=== PATIENT | male | born 1965 | race Caucasian/White ===

== ENCOUNTER 2025-05-08 09:42 | Outpatient (REF) | payer BC, SELFPAY ==
--- OUTSIDE RECORDS SUMMARY | 2025-05-08 13:48 | XMS_ITS ---
Author Name [facility] Organization Unknown History of Medication Use Medication Directions Dispensed Refills Start Date End Date Stat us gadobutrol (GADAVIST) injection 9 mL 9 mL, Intravenous, Once in imaging, contrast, Starting on Wed12/08/22 at 2008, For 1 dose, Radiology Appointment 12/09/2022 12/09/2022 completed Problems Problem Status Onset Date Problem Type Date of Resoluti on Source Pudendal neuralgia active EncounterDiagnosisAct CCT Encounters Encounter Type Encounter Reason Primary Diagnosis Location Date Ambulatory Other specified mononeuropathies [employer] 12/08/2022 Care Team Organization Name Specialty Phone Email Start Date End Da te [employer] PCP,No Primary Care 12/08/2022 [employer] NO PCP Primary Care
[2025-05-08 14:21] LABS: MANUAL DIFF FLAG NO
[2025-05-08 14:29] LABS: Hematocrit 49.1 % (42.0-52.0); Hemoglobin 16.9 g/dl (14.0-18.0); Imm Gran Abs Auto 0.01 X10*3/uL (0.00-0.03); Imm Gran Pct Auto 0.2 % (0.0-0.4); Lymphocytes Absolute Auto 2.1 X10*3/uL (1.2-4.9); Mean Corpuscular HGB Conc 34.4 g/dl (31.0-36.0); Mean Corpuscular Hemoglobin 31.1 pg (27.0-33.0); Mean Corpuscular Volume 90.4 fL (80.0-98.0); NRBC Abs Auto 0.000 X10*3/uL (0.0-0.012); NRBC Pct Auto 0.0 /100WBC (0.0-0.2); Platelet Count 314 X10*3/uL (160-400); Red Blood Count 5.43 X10*6/uL (4.60-5.80); White Blood Count 5.5 X10*3/uL (4.8-10.8)
[2025-05-08 15:09] LABS: Erythrocyte Sedimentation Rate 2 MM/HR (0-15)
[2025-05-08 15:13] LABS: Prostate Specific Antigen 0.63 ng/mL (<0.05-4.0)
[2025-05-08 17:52] LABS: Anion Gap 12 (12-20)
[2025-05-08 17:56] LABS: Alanine Aminotransferase 20 U/L (0-40); Albumin Level 4.7 g/dL (3.5-5.0); Alkaline Phosphatase 41 U/L (39-117); Aspartate Amino Transferase 31 U/L (5-37); Blood Urea Nitrogen 28 mg/dL (9-16); Calcium 9.8 mg/dL (8.4-10.2); Carbon Dioxide 27 mmol/L (22-29); Chloride 107 mmol/L (96-108); Cholesterol 189 mg/dL (<200); Estimated Glomerular Filt Rate > 60; HDL Cholesterol 41 mg/dL (>40); Potassium 4.1 mmol/L (3.3-5.1); Sodium 142 mmol/L (135-145); Total Protein 7.3 g/dL (6.5-8.0); Triglycerides 139 mg/dL (<150)
[2025-05-09 05:34] LABS: Lyme Abs Screen <0.90 index
[2025-05-11 22:18] LABS: Arsenic, Blood <3 mcg/L (<23); Lead, Blood <1.0 mcg/dL (<3.5); Mercury, Blood <4 mcg/L (<=10)
[2025-05-13 14:38] LABS: Testosterone, Free 56.9 pg/mL (35.0-155.0)
== END 2025-05-08 09:43 | disposition home or self-care (01) ==
LOC: HO.WFDLDS 09:42
PROVIDERS: PCP Internal Medicine; Visit Provider Internal Medicine
DX: M25.551 Pain in right hip (principal); F41.9 Anxiety disorder, unspecified; G62.9 Polyneuropathy, unspecified; G89.29 Other chronic pain; R51.9 Headache, unspecified; H93.19 Tinnitus, unspecified ear; R41.89 Other symptoms and signs involving cognitive functions and awareness; R10.20 Pelvic and perineal pain unspecified side; M54.50 Low back pain, unspecified; M25.552 Pain in left hip; F33.41 Major depressive disorder, recurrent, in partial remission; Z87.81 Personal history of (healed) traumatic fracture; Z13.1 Encounter for screening for diabetes mellitus; Z12.5 Encounter for screening for malignant neoplasm of prostate
CPT/HCPCS: 36415; 80053; 80061; 82175; 82533; 83036; 83655; 83825; 84153; 84402; 84403; 84443; 85025; 85652; 86617; 86618; 96127

== ENCOUNTER 2025-05-08 09:42 | Outpatient (AMB) | payer BC, SELFPAY ==
--- NOTE | 2025-05-08 09:45 | A.OFFPC_ITS ---
Vital Signs 05/08/25 09:56 Height 5 ft 10.08 in Weight 201 lb 2 oz BMI 28.8 BP 126/70 Blood Pressure Location Rt brachial Position Standing Respiration 18 Pulse 67 Pulse Source Pulse Oximeter Temp 97.8 F Temp Source Oral Pulse Oximetry (%) 98 Oxygen Delivery Method Room Air Intake Visit Reasons: Looking for a New Provider Intake Note: Looking for new provider Silk Screen Printing Racker Required: No Allergies No Known Allergies Allergy (Verified 05/08/25 09:48) Tobacco use date assessed: 05/08/25 Dental Screening Dental Screen Date: 05/08/25 Did you have a dental visit in the last 12 months?: Yes Did you have a dental problem in the last 6 months where you did not have access to dental care?: No Was dental information given to patient?: Patient has dentist HPI HPI Comments History of Present Illness Details The patient is a 59 year old male with a past medical history anxiety/depression, insomnia, spinal fracture, PVC, h/o pelvic pain s/p pudendal nerve block presenting to reestablish care Continues to have pelvic pain, low back pain, bilateral hip pain. History of nerve block which worsened his symptoms. Had prolonged bad reaction to prednisone taper. Continues to have tinnitus. Has increased headaches, neuralgia, brain fog BH: Still following with Zulay Gilliland History of skin cancer-JORGE Colonoscopy 2016 ROS see HPI PHYSICAL EXAM: Deferred [facility] Medical History Skin cancer Neuropathy Depression Anxiety Acid reflux Surgical History H/O spinal fusion Hx of tonsillectomy History of appendectomy Family History Mother Hypertension High cholesterol Lung cancer Brain cancer Father Hypertension High cholesterol Diabetes Father No problems noted. Other CML (chronic myelocytic leukemia) Social History Housing: House Alcohol intake: current Comment: 1-2 a month Patient Tobacco Use Status: Never used Tobacco e-Cigarette/Vaping Use: Never Used service: No Current occupational status: retired Current occupational exposures/hazards: No Cognitive needs: No Hearing needs: No Vision needs: No Questionnaire PHQ-9 Over the last 2 weeks, how often have you been bothered by any of the following problems? 1. Little interest or pleasure in doing things: several days 2. Feeling down, depressed, or hopeless: several days 3. Trouble falling or staying asleep, or sleeping too much: several days 4. Feeling tired or having little energy: several days 5. Poor appetite or overeating: not at all 6. Feeling bad about yourself - or that you are a failure or have let yourself or your family down: not at all 7. Trouble concentrating on things, such as reading the newspaper or watching television: several days 8. Moving or speaking so slowly that other people could have noticed. Or the opposite - being so fidgety or restless that you have been moving around a lot more than usual: not at all 9. Thoughts that you would be better off or of hurting yourself in some way: not at all Total score: 5 Depression Screening Interpretation: Positive Depression Screening Follow-up: Existing condition Depression Screening Done: Yes 45419 - PHQ-9 Billing: Yes Source: Developed by Drs. Rei Caro, Tamar Aviles, Yosi Grider and colleagues, with an educational argelia from [employer]. Thrive Questionnaire I am a: Patient What is your living situation today?: I have a steady place to live Within the past 12 months, did the food you bought not last and you didn't have the money to get more?: Never true Within the past 12 months, did you worry whether your food would run out before you got money to buy more?: Never true Do you have trouble paying for medicines?: No Do you have trouble getting transportation to medical appointments?: No Do you have trouble paying your heating and electricity bill?: No Do you have trouble taking care of your child, family member or friend?: No Do you have trouble with day-to-day activities such as bathing, preparing meals, shopping, managing finances, etc.?: No Are you currently unemployed and looking for a job?: No Are you interested in more education?: No Please select the resources that you would like help with: None Currently or been in a relationship where the following occur: No concerns reported THRIVE Score: 0 AUDIT C Alcohol Use Questionnaire (AUDIT-C) 1. How often do you have a drink containing alcohol?: Monthly or less 2. How many drinks containing alcohol do you have on a typical day when you are drinking?: 1 or 2 3. How often do you have six or more drinks on one occasion?: Never Total Score: 1 Score Reviewed/Action Taken: Yes EVENS-7 AMB Questionnaire EVENS-7 Date EVENS - 7 assessed: 05/08/25 Feeling nervous, anxious, or on edge: 1 = Several days Not being able to stop or control worryin = Several days Worrying too much about different things: 1 = Several days Trouble relaxin = Several days Being so restless that it is hard to sit still: 0 = Not at all Becoming easily annoyed or irritable: 1 = Several days Feeling afraid as if something awful might happen: 0 = Not at all Total EVENS-7 score (0-4 normal; 5-9 mild; 10-14 moderate; 15-21 severe): 5 Source: Developed by Drs. Rei Caro, Tamar Aviles, Yosi Grider and colleagues, with an educational argelia from [employer]. EVENS-7 Assessment Billing EVENS-7 Assessment Tool: EVENS-7 Assessment 73712 Physical exam (Primary Care) Vital Signs: Last Vital Signs Temp 97.8 F 05/08/25 09:56 Pulse 67 05/08/25 09:56 Resp 18 05/08/25 09:56 BP 126/70 05/08/25 09:56 Pulse Ox 98 05/08/25 09:56 Oxygen Delivery Method Room Air 05/08/25 09:56 BMI result Body Mass Index 28.8 Tobacco/Smoking Status: Tobacco use Status Tobacco use date assessed 05/08/25 05/08/25 09:59 Patient Tobacco Use Status Never used Tobacco 05/08/25 09:59 e-Cigarette/Vaping Use Never Used 05/08/25 09:59 PHQ-9: PHQ-9 Score PHQ-9: Total score 5 05/08/25 10:06 Depression Screening Interpretation: Positive Depression Screening Follow-up: Existing condition Currently or been in a relationship where the following occur: No concerns reported Coding Level of Care Code Est Pt Level 4 (91921) Complex EM visit Add On G2211 Diagnoses Pelvic pain in male R10.2 Nonintractable headache, unspecified chronicity pattern, unspecified headache type R51.9 Headache type: unspecified Headache chronicity pattern: unspecified pattern Intractability: not intractable Anxiety F41.9 Recurrent major depressive disorder, in partial remission F33.41 Depression Type: major depressive disorder Major depression recurrence: recurrent Active/Remission status: in partial remission Additional Codes EVENS-7 Assessment Billing - EVENS-7 Assessment Tool: EVENS-7 Assessment 83986 ([id number]) PHQ-9 - 96619 - PHQ-9 Billing: Yes ([id number]) Assessment & Plan Assessment & Plan (1) Pelvic pain in male: Code(s): R10.2 - Pelvic and perineal pain Category: Medical (2) Headache: Code(s): R51.9 - Headache, unspecified Category: Medical Qualifiers: Headache type: unspecified Headache chronicity pattern: unspecified pattern Intractability: not intractable Qualified Code(s): R51.9 - Headache, unspecified (3) Anxiety: Code(s): F41.9 - Anxiety disorder, unspecified Category: Medical (4) Depression: Code(s): F32.A - Depression, unspecified Category: Medical Qualifiers: Depression Type: major depressive disorder Major depression recurrence: recurrent Active/Remission status: in partial remission Qualified Code(s): F33.41 - Major depressive disorder, recurrent, in partial remission Plan 59 year old male presenting to [facility] Interval history reviewed. Difficult history Ongoing pelvic pain,has increased bilateral hip pain. Labs ordered. Brain fogs,headache-MR ordered Orders: Orders Complete Blood Count Auto Diff 05/08/25 F32.A - Depression, unspecified, F41.9 - Anxiety disorder, unspecified, G62.9 - Polyneuropathy, unspecified, G89.29 - Other chronic pain, R10.2 - Pelvic and perineal pain, Z87.81 - Personal history of (healed) traumatic fracture Lipid Panel 05/08/25 F32.A - Depression, unspecified, F41.9 - Anxiety disorder, unspecified, G62.9 - Polyneuropathy, unspecified, G89.29 - Other chronic pain, R 10.2 - Pelvic and perineal pain, Z87.81 - Personal history of (healed) traumatic fracture TSH reflex Free T4 05/08/25 F32.A - Depression, unspecified, F41.9 - Anxiety disorder, unspecified, G62.9 - Polyneuropathy, unspecified, G89.29 - Other chronic pain, R10.2 - Pelvic and perineal pain, Z87.81 - Personal history of (healed) traumatic fracture Hemoglobin A1c 05/08/25 F32.A - Depression, unspecified, F41.9 - Anxiety disorder, unspecified, G62.9 - Polyneuropathy, unspecified, G89.29 - Other chronic pain, R10.2 - Pelvic and perineal pain, Z87.81 - Personal history of (healed) traumatic fracture Lyme IgG/IgM w/reflex to WB 05/08/25 H93.19 - Tinnitus, unspecified ear Testosterone, Free/Total 05/08/25 H93.19 - Tinnitus, unspecified ear, R41.89 - Other symptoms and signs involving cognitive functions and awareness, R51.9 - Headache, unspecified XR hips CHINTAN min 3V 05/08/25 M25.551 - Pain in right hip, M25.552 - Pain in left hip Erythrocyte Sedimentation Rate 05/08/25 R51.9 - Headache, unspecified MR head/brain w con 05/08/25 H93.19 - Tinnitus, unspecified ear Comprehensive Met. Panel 05/08/25 F32.A - Depression, unspecified, F41.9 - Anxiety disorder, unspecified, G62.9 - Polyneuropathy, unspecified, G89.29 - Other chronic pain, R10.2 - Pelvic and perineal pain, Z87.81 - Personal history of (healed) traumatic fracture Prostate Specific Antigen 05/08/25 F32.A - Depression, unspecified, F41.9 - Anxiety disorder, unspecified, G62.9 - Polyneuropathy, unspecified, G89.29 - Other chronic pain, R10.2 - Pelvic and perineal pain, Z87.81 - Personal history of (healed) traumatic fracture Cortisol Random 05/08/25 H93.19 - Tinnitus, unspecified ear, R41.89 - Other symptoms and signs involving cognitive functions and awareness, R51.9 - Headache, unspecified Heavy Metals Screen Blood 05/08/25 R10.2 - Pelvic and perineal pain, R41.89 - Other symptoms and signs involving cognitive functions and awareness
[2025-05-08 09:56] VITALS: BP 126/70; PULSE 67; RESP 18; TEMP 36.6; O2SAT 98; BMI 28.8
--- OUTSIDE RECORDS SUMMARY | 2025-05-08 11:00 | XMS_ITS | Clinical Summary ---
Author Organization [facility] Address [address] [place] [address] Care Team Providers Care Water Pump Installer Name Role Phone Pcp, No Primary Care Provider Unavailabl e Allergies No known active allergies Social History Tobacco Use Types Packs/Day Years Used Date Smoking Tobacco: Never Assessed Sex and Gender Information Value Date Recorded Sex Assigned at Male 12/04/2022 4:51 PM EDT Legal Sex Male 1:50 PM EDT Gender Identity Male 12/04/2022 4:51 PM EDT Sexual Orientation Heterosexual (straight) 12/04 4:51 PM EDT Plan of Treatment Health Maintenance Due Date Last Done Comments Hepatitis C Virus Screening 1965 HIV Screening 12/19/1980 DTaP/Tdap/Td Vaccines (1 - Tdap) 12/19/1986 Hepatitis B Vaccines (1 of 3 - 19+ 3-dose series) 12/19/1986 Colonoscopy 12/19/2012 Pneumococcal Vaccines 50+ (1 of 1 - PCV) 12/19/2017 Zoster (Shingles) Vaccine (1 of 2) 12/19/2017 Influenza Vaccine 02/16/2025 04/01/2021, , 05/07/2020, Additional history exists COVID-19 Vaccine ( - 2024-2 6 season) 2025 07/02/2021, 08/19/2020, 07/24/2020 RSV Vaccine 50 years and old er and Patients (1 - 1-dose 75+ series) 12/19/2042 Insurance [facility] - HMO Care Teams Water Pump Installer Relationship Specialty Start Date End Date Pcp, No PCP - General General Medicine 12/01/22
--- OUTSIDE RECORDS SUMMARY | 2025-05-08 11:00 | XMS_ITS | Patient Health Record ---
Author Organization [facility] Address [address] [place] [address] Care Team Providers Care Pediatric Assistant Name Role Phone Marilin Chua MD Primary Care Provider Lilian Lovett Unavailable [phone] Reason For Referral No Information Medications Medication SIG (Take, Route, Frequency, Duration) Notes Start Date End Date Status Omeprazole Active Wellbutrin Active traZODone HCl Active Social History Tobacco Use: Social History Observation Description Date Details (start date - stop date) Never Smoker NA - NA Tobacco Use/Smoking Question Answer Notes Are you a: nonsmoker Additional Findings: Tobacco Non-User Current no n-smoker Alcohol Screen Question Answer Notes Did you have a drink containing alcohol in the p ast year? Yes Points 0 Interpretation Negative Tobacco use other than smoking: Question Answer Notes Are you an other tobacco user? No Problems Problem Type SNOMED Code ICD Code Onset Dates Problem Status W/U Status Risk Notes Problem Raynaud's disease (585764089) Raynaud's disease without gangrene (I73.00) Active confirmed Problem Localized, primary osteoarthritis of the ankle and/or foot (503341131) Osteoarthritis of right ankle and foot (M19.071) Active confirmed Plan Of Treatment No Information Insurance Providers Payer Name Payer Address Payer Phone Subscriber Number Group Number Insured Name Patient Relationship to Insured Coverage Start Date Coverage End Date [facility] [address] [place] [address] [id number] Bucky Mora Self - patient is the insured Medical (General) History Medical History History ICD Code Anxiety Depression Chicken pox breast mass Spinal compression fracture Surgical History Surgery Date(Month/Year) tonsillectomy 1970 appendectomy 2000 spinal stenosis surgery 12/19/2015
--- OUTSIDE RECORDS SUMMARY | 2025-05-08 11:00 | XMS_ITS | Encounter Summary ---
Author Organization [facility] Address [address] [place] [address] Care Team Providers Care Weaving Supervisor Name Role Phone Pcp, No Primary Care Provider Unavailabl e Encounter Details Date Type Department Care Team (Late st Contact Info) Description 12/01/2022 Scanned Document [address] [place] [address] [phone] Provider, Generic Social History Tobacco Use Types Packs/Day Years Used Date Smoking Tobacco: Never Assessed Sex and Gender Information Value Date Recorded Sex Assigned at Male 12/04/2022 4:51 PM EDT Legal Sex Male 1:50 PM EDT Gender Identity Male 12/04/2022 4:51 PM EDT Sexual Orientation Heterosexual (straight) 12/04 4:51 PM EDT documented as of this encounter Plan of Treatment Not on file documented as of this encounter Procedures Procedure Name Priority Date/Time Associated Diagnosis Comments HX OUTSIDE ORDER 12/02/2022 HX OUTSIDE ORDER 12/01/2022 documented in this encounter Results * HX OUTSIDE ORDER (12/02/2022) Narrative 12/02/2022 Ordered by an unspecified provider. us Generic Provider HX AMB PROCEDURES Final Result * HX OUTSIDE ORDER (12/01/2022) Narrative 12/01/2022 Ordered by an unspecified provider. us Generic Provider HX AMB PROCEDURES Final Result documented in this encounter Visit Diagnoses Not on filedocumented in this encounter Care Teams Weaving Supervisor Relationship Specialty Start Date End Date Pcp, No PCP - General General Medicine 12/01/22 documented as of this encounter
== END 2025-05-08 10:34 | disposition home or self-care (01) ==
LOC: HO.HMCFM 09:43
PROVIDERS: PCP Internal Medicine; Visit Provider Internal Medicine
DX: R10.20 Pelvic and perineal pain unspecified side (principal); R51.9 Headache, unspecified; F41.9 Anxiety disorder, unspecified; F33.41 Major depressive disorder, recurrent, in partial remission

== ENCOUNTER 2025-06-22 15:22 | Outpatient (AMB) | payer BC, SELFPAY ==
[2025-06-22 15:26] VITALS: BP 136/74; PULSE 71; RESP 14; O2SAT 99; BMI 29.0
--- NOTE | 2025-06-22 15:26 | A.OFFPC_ITS ---
Vital Signs 06/22/25 15:26 Height 5 ft 10.08 in Weight 202 lb 4 oz BMI 29.0 BP 136/74 Blood Pressure Location Rt brachial Position Sitting Respiration 14 Pulse 71 Pulse Source Pulse Oximeter Pulse Oximetry (%) 99 Oxygen Delivery Method Room Air Intake Visit Reasons: 6 wks follow up Intake Note: Follow up Allergies No Known Allergies Allergy (Verified 06/22/25 15:28) Tobacco use date assessed: 05/08/25 Dental Screening Dental Screen Date: 05/08/25 HPI HPI Comments History of Present Illness Details The patient is a 59 year old male with a past medical history anxiety/depression, insomnia, spinal fracture, PVC, h/o pelvic pain s/p pudendal nerve block presenting for follow up Continues to have pelvic pain, low back pain, bilateral hip pain. History of nerve block which worsened his symptoms. Detailed history scanned. Has seen multiple specialists but dysfunction persists. EMG sacrum ordered. Increased bilateral hip pain. Interested in ortho consult Had prolonged bad reaction to prednisone taper. Continues to have tinnitus. Has increased headaches, neuralgia, brain fog. MRI was ordered but he would like to wait on this at present. BH: Still following with Zulay Gilliland History of skin cancer-OJRGE Colonoscopy 2015 ROS see HPI PHYSICAL EXAM: GENERAL: Alert and oriented x 3. NAD EYES: EOMI. Anicteric. HENT: Moist mucous membranes. No scleral icterus. No cervical lymphadenopathy. LUNGS: Clear to auscultation bilaterally. CARDIOVASCULAR: Regular rate and rhythm. No murmur. No JVD. ABDOMEN: Soft, non-tender +bs EXTREMITIES: No edema. Non-tender. SKIN: No rashes or lesions. Warm. NEUROLOGIC: No focal neurological deficits. CN II-XII grossly intact PSYCHIATRIC: Cooperative. Appropriate mood and affect [facility] Medical History (Updated 06/23/25 @ 23:06 by Yarelis Real MD) Skin cancer Neuropathy Depression Anxiety Acid reflux Surgical History H/O spinal fusion Hx of tonsillectomy History of appendectomy Family History Mother Hypertension High cholesterol Lung cancer Brain cancer Father Hypertension High cholesterol Diabetes Father No problems noted. Other CML (chronic myelocytic leukemia) Social History Housing: House Alcohol intake: current Comment: 1-2 a month Patient Tobacco Use Status: Never used Tobacco e-Cigarette/Vaping Use: Never Used service: No Current occupational status: retired Current occupational exposures/hazards: No Cognitive needs: No Hearing needs: No Vision needs: No Questionnaire Thrive Questionnaire Date Thrive assessed: 05/08/25 I am a: Patient What is your living situation today?: I have a steady place to live Within the past 12 months, did the food you bought not last and you didn't have the money to get more?: Never true Within the past 12 months, did you worry whether your food would run out before you got money to buy more?: Never true Do you have trouble paying for medicines?: No Do you have trouble getting transportation to medical appointments?: No Do you have trouble paying your heating and electricity bill?: No Do you have trouble taking care of your child, family member or friend?: No Do you have trouble with day-to-day activities such as bathing, preparing meals, shopping, managing finances, etc.?: No Are you currently unemployed and looking for a job?: No Are you interested in more education?: No Please select the resources that you would like help with: None Currently or been in a relationship where the following occur: No concerns reported THRIVE Score: 0 EVENS-7 AMB Questionnaire EVENS-7 Date EVENS - 7 assessed: 05/08/25 Source: Developed by Drs. Rei Caro, Tamar Aviles, Yosi Grider and colleagues, with an educational argelia from [employer]. Physical exam (Primary Care) Vital Signs: Last Vital Signs Pulse 71 06/22/25 15:26 Resp 14 06/22/25 15:26 BP 136/74 06/22/25 15:26 Pulse Ox 99 06/22/25 15:26 Oxygen Delivery Method Room Air 06/22/25 15:26 BMI result Body Mass Index 29.0 Tobacco/Smoking Status: Tobacco use Status Tobacco use date assessed 05/08/25 06/22/25 15:31 Patient Tobacco Use Status Never used Tobacco 06/22/25 15:31 e-Cigarette/Vaping Use Never Used 06/22/25 15:31 Thrive Assessment: Date of Thrive Assessment Date Thrive assessed 05/08/25 06/22/25 15:31 Currently or been in a relationship where the following occur: No concerns reported Coding Level of Care Code Complex visit Add On G2211 Diagnoses Chronic pelvic pain in male R10.20; G89.29 Bilateral hip pain M25.551; M25.552 Tinnitus of both ears H93.13 Laterality: bilateral Neuropathy G62.9 Nonintractable headache, unspecified chronicity pattern, unspecified headache type R51.9 Headache type: unspecified Headache chronicity pattern: unspecified pattern Intractability: not intractable Assessment & Plan Assessment & Plan (1) Chronic pelvic pain in male: Code(s): R10.20 - Pelvic and perineal pain unspecified side; G89.29 - Other chronic pain Category: Medical (2) Bilateral hip pain: Code(s): M25.551 - Pain in right hip; M25.552 - Pain in left hip Category: Medical (3) Tinnitus: Code(s): H93.19 - Tinnitus, unspecified ear Category: Medical Qualifiers: Laterality: bilateral Qualified Code(s): H93.13 - Tinnitus, bilateral (4) Neuropathy: Code(s): G62.9 - Polyneuropathy, unspecified Category: Medical (5) Headache: Code(s): R51.9 - Headache, unspecified Category: Medical Qualifiers: Headache type: unspecified Headache chronicity pattern: unspecified pattern Intractability: not intractable Qualified Code(s): R51.9 - Headache, unspecified Plan 59 year old for follow up Bilateral hip pain-ortho referral Pelvic pain, neuropathy-EMGordered Headaches-declinesMRI at present Orders: Orders NE nerve conduction velocity 06/22/25 R10.2 - Pelvic and perineal pain NE electromyogram (EMG) 06/22/25 G89.29 - Other chronic pain, R10.20 - Pelvic and perineal pain unspecified side Referrals Gastroenterology Referral Z12.11 - Encounter for screening for malignant neoplasm of colon Orthopedics Referral M25.551 - Pain in right hip, M25.552 - Pain in left hip
--- OUTSIDE RECORDS SUMMARY | 2025-06-22 19:21 | XMS_ITS | Clinical Summary ---
Author Organization [facility] Address [address] [place] [id number] Care Team Providers Care Fire Marshal Name Role Phone Pcp, No Primary Care [...] (1 - 1-dose 75+ series) 12/19/2042 Insurance [facility] - HMO Care Teams Fire Marshal Relationship Specialty Start Date End Date Pcp, No PCP - General General Medicine 12/01/22
--- OUTSIDE RECORDS SUMMARY | 2025-06-22 19:21 | XMS_ITS | Encounter Summary ---
Author Organization [facility] Address [address] [place] [address] Care Team Providers Care Efficiency Clerk Name Role Phone Pcp, No Primary Care Provider Unavailabl e Encounter Details Date Type Department Care Team (Late st Contact Info) Description 12/01/2022 Scanned Document [address] [place] [address] [phone] Provider, Generic Social History Tobacco Use Types [...] on filedocumented in this encounter Care Teams Efficiency Clerk Relationship Specialty Start Date End Date Pcp, No PCP - General General Medicine 12/01/22 documented as of this encounter
--- OUTSIDE RECORDS SUMMARY | 2025-06-22 19:21 | XMS_ITS | Encounter Summary ---
Author Organization [facility] Address [address] [place] [address] Phone Care Team Providers Care Punch Hand Name Role Phone Marilin Chua MD Primary Care Provider +1- [phone] Yarelis Balderas MD Primary Care Provider [phone] Encounter Details Date Type Department Care Team (Late st Contact Info) Description 10/15/2022 Ancillary Orders [facility] [address] [facility] - [address] [place] [address] Hayley Bautista MD [address] [place] [address] [email or web address] Pain Social History Tobacco Use Types Packs/Day Years Used Date Smoking Tobacco: Never Smokeless Tobacco: Never Alcohol Use Standard Drinks/Week Comments Not Currently 0 (1 standard drink = 0.6 oz pur e alcohol) Sex and Gender Information Value Date Recorded Sex Assigned at Male 05/27/2021 8:59 AM EST Legal Sex Male 6:54 PM EST Gender Identity Male 05/27/2021 8:59 AM EST Sexual Orientation Straight 05/27/2021 8: 59 AM EST documented as of this encounter Plan of Treatment Not on file documented as of this encounter Results * [place] [facility] (10/15/2022 9:32 AM EDT) Narrative [facility] IMG INTERFACES - 10/15/2022 9:33 AM EDT Fluoroscopy was provided during this procedure. us Hayley Bautista MD IMG [place] EXAMS Final Resul t [facility] IMG INTERFACES documented in this encounter Visit Diagnoses Diagnosis Pain Generalized pain Pain Generalized pain documented in this encounter Care Teams Punch Hand Relationship Specialty Start Date End Date Marilin Chua MD [address] [place] [address] PCP - General 09/18/15 03/29/23 Yarelis Balderas MD [address] [place] [address] PCP - General Internal Medicine 03/30/23 documented as of this encounter Additional Source Comments The information contained in this document represents components of the legal health record. It is not the complete legal health record.[facility]
--- OUTSIDE RECORDS SUMMARY | 2025-06-22 19:21 | XMS_ITS | Encounter Summary ---
Author Organization [facility] Address [address] [place] [address] Phone Care Team Providers Care Interceptor Operator Name Role Phone Marilin Chua MD Primary Care Provider +- [phone] Yarelis Balderas MD Primary Care Provider [phone] Encounter Details Date Type Department Care Team (Late st Contact Info) Description 04/24/2020 Telephone [facility] Otology [address] [address] Ugo Christina MD [address] [place] [address] [email or web address] Social History Tobacco Use Types Packs/Day Years Used Date Smoking Tobacco: Never Smokeless Tobacco: Never Sex and Gender Information Value Date Recorded Sex Assigned at Male 05/27/2021 8:59 AM EST Legal Sex Male 6:54 PM EST Gender Identity Male 05/27/2021 8:59 AM EST Sexual Orientation Straight 05/27/2021 8: 59 AM EST documented as of this encounter Plan of Treatment Not on file documented as of this encounter Visit Diagnoses Not on filedocumented in this encounter Care Teams Interceptor Operator Relationship Specialty Start Date End Date Marilin Chua MD [address] [place] [address] PCP - General 09/18/15 03/29/23 Yarelis Balderas MD [address] [place] [address] PCP - General Internal Medicine 03/30/23 documented as of this encounter Additional Source Comments The information contained in this document represents components of the legal health record. It is not the complete legal health record.[facility]
--- OUTSIDE RECORDS SUMMARY | 2025-06-22 19:21 | XMS_ITS | Encounter Summary ---
Author Organization [facility] Address [address] [place] [address] Phone Care Team Providers Care Allergist/Immunologist Name Role Phone Marilin Chua MD Primary Care Provider +- [phone] Yarelis Balderas MD Primary Care Provider [phone] Encounter Details Date Type Department Care Team (Late st Contact Info) Description 10/15/2022 Ancillary Orders [facility] Sports Medicine [address] [place] [address] Hayley Bautista MD [address] [place] [address] [email or web address] Social History Tobacco Use Types Packs/Day Years [...] on filedocumented in this encounter Care Teams Allergist/Immunologist Relationship Specialty Start Date End Date Marilin Chua MD [address] [place] [address] PCP - General 09/18/15 03/29/23 Yarelis Balderas MD [address] [place] [address] PCP - General Internal Medicine 03/30/23 documented as of this encounter Additional Source Comments The information contained in this document represents components of the legal health record. It is not the complete legal health record.[facility]
--- OUTSIDE RECORDS SUMMARY | 2025-06-22 19:21 | XMS_ITS | Encounter Summary ---
Author Organization [facility] Address [address] [place] [address] Phone Care Team Providers Care Recycler Name Role Phone Marilin Chua MD Primary Care Provider [phone]- [phone] Yarelis Balderas MD Primary Care Provider [phone] Reason for Referral * Consultation (Elective) - Closed Specialty Diagnoses / Procedures Referred By Arleth goodwin Referred To Contact Neurology Diagnoses Encounter for consultation System, Provider Not In, [place] [address] Referral ID Status Reason Start Date Expiration Date Visits Re quested Visits Authorized [id number] Closed 02/12/2016 02/11/2017 1 1 Encounter Details Date Type Department Care Team (Late st Contact Info) Description 02/12/2016 Transcribe Orders [facility] Department of Neurology [address] [place] [address], [address] Floor, [address] [place] [address] System, Provider Not In, [place] [address] Encounter for consultation (Primary Dx) Social History Tobacco Use Types Packs/Day Years Used Date Smoking Tobacco: Never Sex and Gender Information Value Date Recorded Sex Assigned at Male 05/27/2021 8:59 AM EST Legal Sex Male 6:54 PM EST Gender Identity Male 05/27/2021 8:59 AM EST Sexual Orientation Straight 05/27/2021 8: 59 AM EST documented as of this encounter Plan of Treatment Scheduled Referrals Name Type Priority Associated Diagnoses Orde r Schedule Ambulatory referral to [facility] Outpatient Referral Routine Encounter for consultation Ordered: 02/12/2016 documented as of this encounter Visit Diagnoses Diagnosis Encounter for consultation- Primary documented in this encounter Care Teams Recycler Relationship Specialty Start Date End Date Marilin Chua MD [address] [place] [address] PCP - General 09/18/15 03/29/23 Yarelis Balderas MD [address] [place] [address] PCP - General Internal Medicine 03/30/23 documented as of this encounter Additional Source Comments The information contained in this document represents components of the legal health record. It is not the complete legal health record.[facility]
--- OUTSIDE RECORDS SUMMARY | 2025-06-22 19:21 | XMS_ITS | Encounter Summary ---
Author Organization [facility] Address [address] [place] [address] Phone Care Team Providers Care Certified Nurses Aide Name Role Phone Marilin Chua MD Primary Care Provider [phone]- [phone] Yarelis Balderas MD Primary Care Provider + [phone] Encounter Details Date Type Department Care Team (Late st Contact Info) Description 06/06/2021 Ophth Exam [facility] Emergency Department [address] [place] [address] Tao Thomas, KIMBERLY [address] [place] [id number] [email or web address] Social History Tobacco Use Types Packs/Day Years [...] AM EST documented as of this encounter Functional Status * Calculated C-SSRS Risk Score (Lifetime/Recent) Answer Date of Assessment Author No Risk Indicated 06/06/2021 11:02 AM Tao Millan RN * [place] Suicide Severity Rating Scale (Screener/Recent Self-Report) Question Answer Date of Assessment Author 1. Wish to be (Past 1 Month) No 021 11:02 AM Tao Millan, RN 2. Non-Specific Active Suici elvie Thoughts (Past 1 Month) No 06/06/2021 11:02 AM Kellee Millan RN 6. Suicidal Behavior (Lifetime) No 11:02 AM Tao Millan RN documented as of this encounter Plan of Treatment Not on file documented as of this encounter Visit Diagnoses Not on filedocumented in this encounter Care Teams Certified Nurses Aide Relationship Specialty Start Date End Date Marilin Chua MD [address] [place] [address] PCP - General 09/18/15 03/29/23 Yarelis Balderas MD [address] [place] [address] PCP - General Internal Medicine 03/30/23 documented as of this encounter Additional Source Comments The information contained in this document represents components of the legal health record. It is not the complete legal health record.[facility]
--- OUTSIDE RECORDS SUMMARY | 2025-06-22 19:21 | XMS_ITS | Clinical Summary ---
Author Organization [facility] Address [address] [place] [address] Phone Care Team Providers Care Director Digital Advertising Name Role Phone Yarelis Balderas MD Primary Care Provider Allergies No known active allergies Medications OMEPRAZOLE ORAL Take by mouth. Active magnesium oxide (MAG-OX) 400 mg (241.3 mg elemental) tablet Take by mouth. 04/27/2022 Active Medication-Free Text daily. Vitamin B9 and Vitamin B1 Active Medication-Free Text daily. Tumeric Active Active Problems Problem Noted Date Diagnosed Date History of vertebral fracture 06/09/2017 History of lumbar spinal fusion 06/09/2017 Generalized anxiety disorder 06/09/2017 Gastroesophageal reflux disease 06/09/2017 Pelvic pain in male 02/13/2016 Assessment & Plan (02/13/2016 7:49 AM EDT): Mr. Dooley presents with pelvic pain and ejaculatory pain for two months after a back injury and subsequent spinal fusion. His urinalysis and physical examination is unremarkable. I advised him that this pain may be secondary to his neurological condition and to also be sure to follow-up closely with his neurosurgeon. I have prescribed empirical tamsulosin and discussed possible side effects. I have recommended a pelvic ultrasound and physical therapy. He will return shortly to discuss his progress. Postnasal drip 12/28/2011 Overview (09/08/2014): Postnasal drip Family History Medical History Relation Comments Hearing loss Neg Hx Social History Tobacco Use Types Packs/Day Years Used Date Smoking Tobacco: Never Smokeless Tobacco: Never Tobacco Cessation:Counseling Given: Not Answered Alcohol Use Standard Drinks/Week Comments Not Currently 0 (1 standard drink = 0.6 oz pur e alcohol) Education Answer Date Recorded Are you interested in more education? Not on angela e 11/17/2022 Are you concerned about learning? Not on file 11/17/2022 No 11/17/2022 No 11/17/2022 Digital Access Answer Date Recorded No 12/10/2022 No 12/10/2022 Reliable internet access at home? Not on file 12/10/2022 Device with a working camera? Not on file Intimate Partner Violence Answer Date R ecorded Are you denied basic needs s uch as food, clothing, or medical care? No 12/10/2022 In the past 12 months have y ou been in a relationship with a person who hurts, threatens, or tries to control you? No 12/10/2022 Are you denied basic needs s uch as food, clothing, or medical care? No 12/10/2022 In the past 12 months have y ou been in a relationship with a person who hurts, threatens, or tries to control you? No 12/10/2022 Sex and Gender Information Value Date Recorded Sex Assigned at Male 05/27/2021 8:59 AM EST Legal Sex Male 6:54 PM EST Gender Identity Male 05/27/2021 8:59 AM EST Sexual Orientation Straight 05/27/2021 8: 59 AM EST Last Filed Vital Signs Vital Sign Reading Time Taken Comments Blood Pressure 134/89 12/10/2022 10:54 AM EDT Pulse 68 01/21/2023 12:31 PM EDT Temperature 36.7 C (98.1 F) 12/10/2022 10:54 AM EDT Respiratory Rate 18 03/30/2023 2:17 PM EDT Oxygen Saturation 99% 12/10/2022 10:54 AM EDT Inhaled Oxygen Concentration - - Weight 86.2 kg (190 lb) 03/30/2023 2:17 PM EDT Height 180.3 cm (5' 11 ) 08/28/2022 1:19 PM EST Body Mass Index 26.5 08/28/2022 1:19 PM EST Plan of Treatment Health Maintenance Due Date Last Done Comments LIPID PANEL 1967 DEPRESSION SCREENING 1979 HEPATITIS C SCREENING 12/19/1985 HIV ONE-TIME SCREENING (18-65 YEARS) 12/19/1985 SCREENING FOR DIABETES 12/19/2002 COLOGUARD 12/19/2012 COLONOSCOPY 12/19/2012 COLORECTAL CANCER SCREENING 12/19/2012 FIT TEST 12/19/2012 FOBT 12/19/2012 SIGMOIDOSCOPY 12/19/2012 VIRTUAL COLONOSCOPY 12/19/2012 PNEUMOCOCCAL VACCINES (50+ years) (1 of 1 - PCV) 12/19/2017 ZOSTER VACCINES (1 of 2) 12/19/2017 Adult Td,Tdap Booster 12/29/2020 12/29/2010 INFLUENZA VACCINE (#1) 2025 , 05/07/2020, 05/05/2020, Additional history exists COVID-19 VACCINE ( - 2024- season) 2025 RSV VACCINE (1 - 1-dose 75+ series) 12/19/2042 SMOKING STATUS SCREENING (Once After 26 Yrs) Completed 01/21/2023 HEPATITIS A VACCINES Aged Out No long er eligible based on patient's age to complete this topic HIB VACCINES Aged Out No longer eligi ble based on patient's age to complete this topic MENINGOCOCCAL VACCINES (ACWY) Aged Out No longer eligible based on patient's age to complete this topic MENINGOCOCCAL VACCINES (B) Aged Out N o longer eligible based on patient's age to complete this topic Medical Devices Not on [place] [address] [place] [address] [facility] Care Teams Director Digital Advertising Relationship Specialty Start Date End Date Yarelis Balderas MD PCP - General Internal Medicine 03/30/23 Additional Source Comments The information contained in this document represents components of the legal health record. It is not the complete legal health record.[facility]
--- OUTSIDE RECORDS SUMMARY | 2025-06-22 19:21 | XMS_ITS | Encounter Summary ---
Author Organization [facility] Address [address] [place] [address] Phone Care Team Providers Care Commercial Assistant Name Role Phone Marilin Chua MD Primary Care Provider +- [phone] Yarelis Balderas MD Primary Care Provider [phone] Reason for Visit * Reason Comments Other Encounter Details Date Type Department Care Team (Late st Contact Info) Description 01/19/2017 Refill [facility] Pain Management [address] [place] [address] Fabiano Parra MD [address] [place] [address] Department of Anesthesiology, Perioperative [place] [address] [email or web address] Other Social History Tobacco Use Types Packs/Day Years [...] on filedocumented in this encounter Care Teams Commercial Assistant Relationship Specialty Start Date End Date Marilin Chua MD [address] [place] [address] PCP - General 09/18/15 03/29/23 Yarelis Balderas MD [address] [place] [address] PCP - General Internal Medicine 03/30/23 documented as of this encounter Additional Source Comments The information contained in this document represents components of the legal health record. It is not the complete legal health record.[facility]
--- OUTSIDE RECORDS SUMMARY | 2025-06-22 19:21 | XMS_ITS | Encounter Summary ---
Author Organization [facility] Address [address] [place] [address] Phone Care Team Providers Care Foreign Exchange Clerk Name Role Phone Marilin Chua MD Primary Care Provider [phone]- [phone] Yarelis Balderas MD Primary Care Provider [phone] Encounter Details Date Type Department Care Team (Late st Contact Info) Description 08/11/2021 Ancillary Orders [facility] [address] [place] [address] Hayley Bautista MD [address] [place] [address] [email or web address] Pain Social History Tobacco Use Types Packs/Day [...] this encounter Results * [place] [facility] (08/12/2021 12:20 PM EST) Narrative [facility] IMG INTERFACES - 08/12/2021 12:21 PM EST Fluoroscopy was provided during this procedure. us Hayley Bautista MD IMG [place] EXAMS Final Resul t [facility] IMG INTERFACES documented in this encounter Visit Diagnoses Diagnosis Pain Generalized pain Pain Generalized pain documented in this encounter Care Teams Foreign Exchange Clerk Relationship Specialty Start Date End Date Marilin Chua MD [address] [place] [address] PCP - General 09/18/15 03/29/23 Yarelis Balderas MD [address] [place] [address] PCP - General Internal Medicine 03/30/23 documented as of this encounter Additional Source Comments The information contained in this document represents components of the legal health record. It is not the complete legal health record.[facility]
== END 2025-06-22 16:36 | disposition home or self-care (01) ==
LOC: HO.HMCFM 15:23
PROVIDERS: PCP Internal Medicine; Visit Provider Internal Medicine
DX: R10.20 Pelvic and perineal pain unspecified side (principal); M25.551 Pain in right hip; M25.552 Pain in left hip; H93.13 Tinnitus, bilateral; G62.9 Polyneuropathy, unspecified; R51.9 Headache, unspecified